=== PATIENT | female | born 1990 | race Caucasian/White ===

== ENCOUNTER → 2020-09-21 | Outpatient (CLI) | payer OTHER ==
[~2020-09-21] MED LIST: NONE PER PT
[2020-09-21 15:41] LABS: MICROSCOPIC AUTO
[2020-09-21 15:51] LABS: ALANINE AMINOTRANSFERASE 17 U/L (12-78); ALBUMIN 4.3 g/dL (3.4-5.0); ANION GAP 7 mmol/L (5-15); BASOPHILS % (AUTO) 1 % (0-1); CALCIUM 9.2 mg/dL (8.5-10.1); CHLORIDE 107 mmol/L (98-107); CREATININE 0.73 mg/dL (0.55-1.02); EOSINOPHILS % (AUTO) 1 % (1-7); LYMPHOCYTES % (AUTO) 28 % (22-44); MEAN CORPUSCULAR HEMOGLOBIN 27.8 pg (27.0-34.8); MEAN CORPUSCULAR HGB CONC 33.3 g/dL (32.4-35.8); MEAN PLATELET VOLUME 8.6 fL (7.4-10.4); MONOCYTES % (AUTO) 5 % (2-9); NEUTROPHILS % (AUTO) 65 % (42-75); PLATELET COUNT 238 x10^3/uL (130-400); RED BLOOD COUNT 4.88 x10^6/uL (3.82-5.3); RED CELL DISTRIBUTION WIDTH 13.4 % (9.6-15.2)
[2020-09-21 15:56] LABS: ALKALINE PHOSPHATASE 56 U/L (45-117); BILIRUBIN,TOTAL 0.4 mg/dL (0.2-1.0); MD NO; TOTAL PROTEIN 7.8 g/dL (6.4-8.2)
== END | disposition home or self-care (01) ==
LOC: STAR 14:37
PROVIDERS: ATTEND Obstetrics & Gynecology Gynecology
DX: Z01.818 Encounter for other preprocedural examination (principal); N94.6 Dysmenorrhea, unspecified; N94.10 Unspecified dyspareunia; R10.2 Pelvic and perineal pain; G89.29 Other chronic pain; Z20.822 Contact with and (suspected) exposure to COVID-19
CPT/HCPCS: 36415; 80053; 81001; 84703; 85025; U0003

== ENCOUNTER 2020-09-27 05:36 | Day surgery (SDC) | payer OTHER ==
[~2020-09-27] VITALS: Ht 167.6 cm; Wt 103.7 kg
[2020-09-27] MEDS ORDERED: CHLORHEXIDINE 15 ML UDC ONE (05:50)
[2020-09-27] MEDS ORDERED: CHLORHEXIDINE 15 ML UDC PO ONE (06:00)
[2020-09-27] MEDS ORDERED: LACTATED RINGERS 1,000 ML IV SCH (06:00)
[2020-09-27] MEDS ORDERED: SILVER NITRATE STICK TP ONE (07:18)
[2020-09-27] MEDS ORDERED: FENTANYL PF 250 MCG/5ML ONE (07:24)
[2020-09-27] MEDS ORDERED: MIDAZOLAM 1 MG/ML, 2ML ONE (07:24)
[2020-09-27] MEDS ORDERED: HALOPERIDOL 5 MG/ML IV PRN (07:30)
[2020-09-27] MEDS ORDERED: DIPHENHYDRAMINE 50 MG/ML, 1ML IVPush PRN (07:30)
[2020-09-27] MEDS ORDERED: OXYcodone 5 MG/5 ML ORAL.SOL UDC PO PRN (07:30)
[2020-09-27] MEDS ORDERED: LABETALOL 5MG/ML, 20ML IV PRN (07:30)
[2020-09-27] MEDS ORDERED: PROMETHAZINE 25 MG/ML, 1ML IVPush PRN (07:30)
[2020-09-27] MEDS ORDERED: HYDROmorphone 1 MG/ML, 1ML INJ IVPush PRN (07:30)
[2020-09-27] MEDS ORDERED: MEPERIDINE/PF 25MG/0.5ML IVPush PRN (07:30)
[2020-09-27] MEDS ORDERED: hydrALAzine 20 MG/ML, 1ML IV PRN (07:30)
[2020-09-27] MEDS ORDERED: DEXAMETHASONE 4 MG/ML, 1ML ONE (07:35)
[2020-09-27] MEDS ORDERED: HYDROmorphone 1 MG/ML, 1ML INJ ONE (08:38)
[2020-09-27] MEDS ORDERED: GLYCOPYRROLATE 0.2MG/1ML, 5ML ONE (08:46)
[2020-09-27] MEDS ORDERED: NEOSTIGMINE 1 MG/ML, 10ML ONE (08:46)
[2020-09-27] MEDS ORDERED: PROPOFOL 10 MG/ML, 20ML ONE (08:46)
[2020-09-27] MEDS ORDERED: ONDANSETRON 2MG/ML, 2ML ONE (08:46)
[2020-09-27] MEDS ORDERED: CEFAZOLIN 1,000 MG ONE (08:46)
[2020-09-27] MEDS ORDERED: ROCURONIUM 10MG/ML,5ML ONE (08:46)
[2020-09-27] MEDS ORDERED: SUCCINYLCHOLINE 20 MG/ML, 10ML ONE (08:46)
[2020-09-27] MEDS ORDERED: SODIUM BICARBONATE 1 MEQ/ML, 50ML VIAL ONE (08:47)
[2020-09-27] MEDS ORDERED: KETOROLAC 30 MG/1 ML ONE (08:47)
[2020-09-27] MEDS ORDERED: OXYcodone 5 MG/5 ML ORAL.SOL UDC ONE (09:13)
[2020-09-27] MEDS ORDERED: ACETAMINOPHEN 650 MG/20.3 ML UDC ONE (09:13)
[2020-09-27] MEDS ORDERED: FENTANYL PF 100 MCG/2ML ONE (09:13)
[2020-09-27] MEDS: FENTANYL PF 100 MCG/2ML IV PRN ×2 (09:15→09:28)
[2020-09-27] MEDS ORDERED: ACETAMINOPHEN 325 MG TABLET PO PRN (09:30)
== END 2020-09-27 10:44 | disposition home or self-care (01) ==
LOC: OUT 05:36
PROVIDERS: ATTEND Obstetrics & Gynecology Gynecology
DX: N94.12 Deep dyspareunia (principal); N80.3 Endometriosis of pelvic peritoneum; N84.0 Polyp of corpus uteri; N73.6 Female pelvic peritoneal adhesions (postinfective); Z82.49 Family history of ischemic heart disease and other diseases of the circulatory system; Z83.3 Family history of diabetes mellitus
CPT/HCPCS: 58558; 58662; 81025; 88305; J0330; J0690; J1100; J1170; J1885; J2250; J2405; J2704; J2710; J3010; J7120